=== PATIENT | female | born 1950 | race Caucasian/White ===

== ENCOUNTER 2016-11-14 11:35 | Emergency (ER) | payer MEDICARE, OTHER ==
[2016-11-14 13:26] LABS: BASOPHIL 0.2 % (0-2); EOSINOPHIL 0.6 % (0-7); HCT 35.8 % (37.0-47.0); HGB 11.6 g/dl (12.5-16.0); LYMPHOCYTE 36.2 % (15-48); MCH 29.4 pg (25.0-31.0); MCHC 32.4 g/dL (32.0-36.0); MCV 90.6 fL (78.0-100.0); MONOCYTE 6.6 % (0-12); MPV 10.7 fL (6.0-9.5); NEUTROPHIL 56.4 % (41-80); PLT 295 K/uL (150-400); RBC 3.95 M/uL (4.20-5.40); RDW 12.7 % (11.5-14.0); WBC 6.4 K/uL (4.0-10.5)
[2016-11-14 13:43] LABS: CREATININE 0.7 mg/dL (0.5-1.0); POTASSIUM 4.5 mmol/L (3.5-5.1)
[2016-11-14 13:58] LABS: BILIRUBIN NEGATIVE (NEGATIVE); BLOOD NEGATIVE Ery/uL (NEGATIVE); CLARITY CLEAR (CLEAR); COLOR YELLOW (YELLOW); GLUCOSE (U) NORMAL (NORMAL); KETONE (U) NEGATIVE (NEGATIVE); LEUKOCYTES NEGATIVE Leu/uL (NEGATIVE); NITRITE NEGATIVE (NEGATIVE); PROTEIN NEGATIVE (NEGATIVE); UROBILINOGEN 0.2 mg/dL (0.2-1.0); pH 5.5 (5.0-9.0)
== END 2016-11-14 15:49 | disposition home or self-care (01) ==
LOC: FER 11:35
PROVIDERS: Nurse Practitioner Family
DX: R19.5 Other fecal abnormalities (principal); R19.7 Diarrhea, unspecified; I11.9 Hypertensive heart disease without heart failure; E78.5 Hyperlipidemia, unspecified; I69.359 Hemiplegia and hemiparesis following cerebral infarction affecting unspecified side; Z79.82 Long term (current) use of aspirin; Z79.01 Long term (current) use of anticoagulants; Z79.899 Other long term (current) drug therapy
CPT/HCPCS: 36415; 80048; 81003; 85025; 99284; C9113